=== PATIENT | female | born 1995 | race Caucasian/White ===

== ENCOUNTER 2023-07-25 01:22 | Emergency (ER) | payer MEDICAID ==
[~2023-07-25] VITALS: Ht 165.1 cm; Wt 92.8 kg
[~2023-07-25 01:22] MED LIST: FLUT9.9S BOTHNARES
[2023-07-25 01:28] VITALS: BP 128/86; PULSE 94; RESP 18; TEMP 97.8; O2SAT 99
== END 2023-07-25 05:31 | disposition left against medical advice (07) ==
LOC: ER 01:23
DX: L60.0 Ingrowing nail (principal); L03.032 Cellulitis of left toe; Z53.21 Procedure and treatment not carried out due to patient leaving prior to being seen by health care provider
CPT/HCPCS: 99281